=== PATIENT | female | born 1955 | race Caucasian/White ===

== ENCOUNTER 2016-09-05 12:42 | Day surgery (SDC) | payer BC ==
[~2016-09-05 12:42] MED LIST: ABACAVIR300 M1; BACTRIM DS TAB1 EAC2 PO; CIPRO500 M2 PO; CLARITIN10 M6 PO; DURAGESIC1 EAC1 TOP; FERRO-SEQUELS1 EACH; HYDROCODON-ACE1 EA16 PO; IRON325 M3 PO; LORAZEPAM1 M1 PO; METAFIBER PO; METOPROLOL PO; METOPROLOL TART25 M1 PO; ONDANSETRON HCL8 M1 PO; OXYCONTIN20 M2 PO; PHOSPHA 250 NE250 M1 PO; SENNOSIDES-DOC1 EAC1 PO; SULFA PO; TRAMADOL HCL50 M2 PO; ZOLOFT PO; ZOLOFT50 M1 PO; [UNRECOGNIZED DRUG - REMARK]
[2016-09-05] MEDS ORDERED: ZOLOFT50 M1 PO (13:28)
[2016-09-05 13:59] LABS: BASO % 1.4 % (0-2); BASO ABSOLUTE COUNT 0.1 tho/cmm (0.0-0.2); EOSINOPHIL ABSOLUTE COUNT 0.3 tho/cmm (0.0-0.7); HCT-HEMATOCRIT 34.7 % (34.0-49.0); HGB-HEMOGLOBIN 11.2 gm/dl (12.0-15.5); IMMATURE GRANULOCYTES ABSOLUTE 0.01 tho/cmm (0-0.03); IMMATURE GRANULOCYTES PERCENT 0.2 % (0-0.3); LYMPH % 14.7 % (20-45); LYMPH ABSOLUTE COUNT 0.6 tho/cmm (0.8-4.5); MCH (MEAN CORPUSCULAR HGB) 30.6 pg (28.0-32.0); MCHC MEAN CORPUSCULAR HGB CONC 32.3 % (32.0-36.0); MCV (MEAN CELL VOLUME) 94.8 fl (82.0-96.0); MEAN PLATELET VOLUME 9.2 cmc (9.4-12.4); MONO % 6.5 % (0-12); MONOCYTE ABSOLUTE COUNT 0.3 tho/cmm (0.0-1.2); NEUTROPHIL ABSOLUTE COUNT 2.9 tho/cmm (1.6-8.0); NEUTROPHIL-AUTOMATED 2.9 tho/cmm (1.6-8.0); NEUTROPHILS % 70.2 % (40-80); PLATELET COUNT 286 tho/cmm (150-450); RED BLOOD COUNT 3.66 mil/cmm (4.00-5.20); RED CELL DISTRIBUTION WIDTH 12.4 % (12.4-16.4); WHITE BLOOD COUNT 4.2 tho/cmm (4.0-10.0)
[2016-09-05 14:01] LABS: INR 1.1 INR (0.9-1.1); PROTHROMBIN TIME 12.7 SECONDS (9.0-13.6)
[2016-09-05] MEDS ORDERED: KEFLEX250 M2 PO (14:37)
== END 2016-09-05 17:48 ==
LOC: SHSB 12:42
PROVIDERS: Radiology Diagnostic Radiology
PROC: 0FB03ZX Excision of Liver, Percutaneous Approach, Diagnostic (ICD-10-PCS; principal; 2016-09-05)
PROC: BF45ZZZ Ultrasonography of Liver (ICD-10-PCS; 2016-09-05)
DX: K74.0 Hepatic fibrosis (principal); K75.9 Inflammatory liver disease, unspecified; I10 Essential (primary) hypertension; C53.9 Malignant neoplasm of cervix uteri, unspecified; N13.30 Unspecified hydronephrosis; Z79.2 Long term (current) use of antibiotics; Z79.899 Other long term (current) drug therapy; Z80.0 Family history of malignant neoplasm of digestive organs; Z98.51 Tubal ligation status; Z98.890 Other specified postprocedural states
CPT/HCPCS: J2250; J3010